=== PATIENT | male | born 1965 | race Caucasian/White ===

== ENCOUNTER 2017-12-26 10:38 | Outpatient (CLI) | payer OTHER ==
[2017-12-26 11:56] LABS: eGFR (African) > 60; eGFR (Non-African) > 60
== END 2017-12-26 10:40 ==
LOC: LAB 10:38
PROVIDERS: ATTEND Family Medicine
DX: E11.9 Type 2 diabetes mellitus without complications (principal); I10 Essential (primary) hypertension
CPT/HCPCS: 36415; 80053; 80061; 82043; 83036

== ENCOUNTER 2018-10-10 08:15 | Outpatient (CLI) | payer OTHER ==
[2018-10-10 09:00] LABS: eGFR (Non-African) > 60
== END 2018-10-10 08:16 ==
LOC: LAB 08:15
PROVIDERS: ATTEND Family Medicine
DX: E11.9 Type 2 diabetes mellitus without complications (principal)
CPT/HCPCS: 36415; 80053; 83036

== ENCOUNTER 2019-07-10 16:19 | Outpatient (CLI) | payer OTHER | END 2019-07-10 16:21 | LOC: LAB 16:19 | PROVIDERS: ATTEND Family Medicine | DX: E11.9 Type 2 diabetes mellitus without complications (principal) | CPT/HCPCS: 83036 ==